=== PATIENT | male | born 1965 | race Caucasian/White ===

== ENCOUNTER 2021-01-18 00:15 | Emergency (ER) | payer OTHER ==
[~2021-01-18] VITALS: Ht 165.1 cm; Wt 81.6 kg
== END 2021-01-18 16:40 | disposition home or self-care (01) ==
LOC: ER 00:15 → CPU-OBS 00:36 → ER 16:40
DX: R07.89 Other chest pain (principal); R42 Dizziness and giddiness
CPT/HCPCS: 70450; 93306; G0378; G0379